=== PATIENT | male | born 1985 | race Caucasian/White ===

== ENCOUNTER 2018-06-04 04:04 | Emergency (ER) | payer SELFPAY ==
[2018-06-04] MEDS ORDERED: Sodium Chloride 0.9% 1,000 ML IV ONE (04:27)
--- NOTE | 2018-06-04 04:34 | ED Physician Chart ---
ED Chief Complaint/HPI - Patient Information Date Seen:: 06/04/18 Time Seen:: 04:29 Chief Complaint:: palpitations History of Present Illness:: 33yr old male s/p snorting cocaine meth last night at 9pm with palpitations ice hot sensation back of neck and lt arm after he added another hit of coccaine pt very anxious and agitated moving all around in bed Allergies:: Allergies Allergy/AdvReac Type Severity Reaction Status Date / Time cefaclor [From Ceclor] Allergy Verified 06/04/18 04:13 Penicillins [PCN] Allergy Verified 06/04/18 04:13 Vitals:: Vital Signs - 8 hr 06/04/18 04:14 Temp 97.3 F HR 97 RR 20 BP 148/101 O2 Sat % 100 ED Review of Systems - Review of Systems General/Constitutional: No fever Skin: No skin lesions Head: No headache Eyes: No loss of vision ENT: No earache Neck: Neck pain Cardio Vascular: Chest pain GI: No vomiting, No diarrhea G/U: No dysuria Musculoskeletal: No bone or joint pain Endocrine: No polyuria Psychiatric: Anxiety Hematopoietic: No bruising Allergic/Immuno: No urticaria Neurological: No weakness Family Medical History - Family Member Mother History Unknown: Yes ED Physical Exam - Physical Examination General/Constitutional: Well-developed, well-nourished Head: Atraumatic Eyes: Lids, conjuctiva normal Skin: No rash ENMT: External ears, nose nl Neck: Nontender Respiratory: Nl effort/Exclusion Cardio Vascular: No murmur, gallop, rubs GI: No tenderness/rebounding/guarding : No CVA tenderness Extremities: No tenderness or effusion Neuro/Psych: Alert/oriented Misc: Normal back ED Assessment - Assessment General Assessment: drug abuse anxiety cp ED Septic Shock - . Is Septic Shock (SBP<90, OR Lactate>4 mmol\L) present?: No - <6hrs of presentation: Vital Signs: Vital Signs - 8 hr 06/04/18 04:14 Temp 97.3 F HR 97 RR 20 BP 148/101 O2 Sat % 100 ED Reassessment (Disposition) - Reassessment Reassessment:: drug abuse with coccaine and meth with cp lekg ok labs iv fluids O2 - Diagnosis Diagnosis:: cp agitation anxiety - Patient Disposition Discharge/Transfer:: Home Condition at Disposition:: Stable
[2018-06-04 04:45] LABS: % BASOPHILS 1.1 % (0.0-2.0); % EOSINOPHILS 1.4 % (0.0-5.0); % LYMPHOCYTES 15.9 % (20.0-50.0); % MONOCYTES 7.3 % (2.0-10.0); % NEUTROPHILS 74.3 % (40.0-80.0); BASOPHILE ABSOLUTE 0.1 Th/cumm (0-0.2); EOSINOPHILE ABSOLUTE 0.1 Th/cmm (0.1-0.4); HEMATOCRIT 48.8 % (41.0-60); HEMOGLOBIN 16.2 gm/dL (12-16); LYMPHOCYTE ABSOLUTE 1.2 Th/cmm (1.5-3.0); MEAN CELL VOLUME 89.8 fl (80-99); MEAN CORPUSCULAR HEMOGLOBIN 29.8 pg (26.0-30.0); MEAN CORPUSCULAR HGB CONC 33.2 pg (28.0-36.0); MEAN PLATELET VOLUME 9.1 fl; MONOCYTE ABSOLUTE 0.5 Th/cmm (0.3-1.0); NEUTROPHILE ABSOLUTE 5.6 Th/cmm (1.8-8.0); PLATELET COUNT 207 Th/cmm (150-400); RED BLOOD COUNT 5.44 Mil/cmm (4.30-5.70); RED CELL DISTRIBUTION WIDTH 12.1 % (11.5-20.0); WHITE BLOOD COUNT 7.5 Th/cmm (4.8-10.8)
[2018-06-04 05:18] LABS: ALB/GLOB RATIO 1.7 (1.0-1.8); ALBUMIN 5.1 gm/dL (4.2-5.5); ALKALINE PHOSPHATASE 70 U/L (34-104); ANION GAP 16.9 (7.0-16.0); BILIRUBIN,TOTAL 1.2 mg/dL (0.3-1.0); BUN - UREA NITROGEN 17 mg/dL (7-25); CALCIUM SERUM 10.5 mg/dL (8.6-10.3); CARBON DIOXIDE 22.8 mEq/L (21.0-31.0); CHLORIDE 101 mEq/L (98-107); CREATININE KINASE 132 U/L (30-223); GFR AFRICAN-AMERICAN > 60.0 ml/min (>90); GFR NON AFRICAN-AMERICAN > 60.0 ml/min; GLUCOSE 124 mg/dL (70-105); POTASSIUM SERUM 3.7 mEq/L (3.5-5.1); SGOT 21 U/L (13-39); SGPT/ALT 22 U/L (7-52); SODIUM SERUM 137 mEq/L (136-145); TOTAL PROTEIN,SERUM 8.2 gm/dL (6.0-8.3)
[2018-06-04 06:06] LABS: AMPHETAMINE URINE POSITIVE (NEGATIVE); BARBITURATES URINE NEGATIVE (NEGATIVE); BENZODIAZEPINES QUAL URINE NEGATIVE (NEGATIVE); CANNABINOID THC POSITIVE (NEGATIVE); COCAINE METABOLITE QUAL URINE POSITIVE (NEGATIVE); METHADONE URINE NEGATIVE (NEGATIVE); METHAMPHETAMINES QUAL URINE POSITIVE (NEGATIVE); OPIATES (MORPHINE) QUAL. URINE NEGATIVE (NEGATIVE); PHENCYCLIDINE (PCP) URINE NEGATIVE (NEGATIVE); TRICYCLICS (TCA) QUAL. URINE NEGATIVE (NEGATIVE)
== END 2018-06-04 06:00 | disposition home or self-care (01) ==
LOC: ER 04:04
DX: R07.89 Other chest pain (principal); F41.9 Anxiety disorder, unspecified; F14.10 Cocaine abuse, uncomplicated; F15.10 Other stimulant abuse, uncomplicated; R45.0 Nervousness; M54.2 Cervicalgia; Z88.0 Allergy status to penicillin; Z88.1 Allergy status to other antibiotic agents
CPT/HCPCS: 36415-UA; 80053-TC; 80307; 82550-TC; 84484-TC; 85025-TC; 93005; J7030; Z7610